=== PATIENT | male | born 1930 | race Caucasian/White ===

== ENCOUNTER 2021-02-09 10:03 | Outpatient (CLI) | payer MEDICARE | END 2021-02-09 10:04 | disposition home or self-care (01) | LOC: BURCT 10:03 | PROVIDERS: ATTEND Psychiatry & Neurology Neurology | DX: F07.81 Postconcussional syndrome (principal); I62.01 Nontraumatic acute subdural hemorrhage; I62.03 Nontraumatic chronic subdural hemorrhage | CPT/HCPCS: 70450 ==

== ENCOUNTER 2021-02-16 14:47 | Inpatient (IN) | payer MEDICARE ==
[2021-02-16 15:24] VITALS: BMI 23.7
[2021-02-16] MEDS: metFORMIN 500 MG TAB PO SCH (17:37)
[2021-02-16] MEDS: Lisinopril 5 MG TAB PO SCH (22:21)
[2021-02-16] MEDS: Latanoprost 0.005% Ophth Soln 2.5 ml Bottle EA EYE SCH (22:21)
[2021-02-16] MEDS: Atorvastatin Calcium 10 MG TAB PO SCH (22:21)
[2021-02-16] MEDS ORDERED: Ondansetron ODT 4 MG TAB PO SCH (23:00)
[2021-02-17] MEDS ORDERED: Aspirin 81 mg Enteric Coated Tablet PO SCH (09:00)
[2021-02-17] MEDS: metFORMIN 500 MG TAB PO SCH ×2 (09:55→17:25)
[2021-02-17] MEDS: Finasteride 5 MG TAB PO SCH (09:56)
[2021-02-17] MEDS: Amlodipine 5 MG TAB PO SCH (09:58)
[2021-02-17] MEDS ORDERED: Loperamide HCl 2 MG CAP PO PRN (16:22)
[2021-02-17] MEDS: Ondansetron ODT 4 MG TAB PO PRN (16:24)
[2021-02-17] MEDS: Atorvastatin Calcium 10 MG TAB PO SCH ×2 (21:38→22:33)
[2021-02-17] MEDS: Latanoprost 0.005% Ophth Soln 2.5 ml Bottle EA EYE SCH ×2 (21:39→22:33)
[2021-02-17] MEDS: Lisinopril 5 MG TAB PO SCH ×2 (21:39→22:33)
[2021-02-17 22:45] LABS: SARS-CoV-2 PCR by NAA Not Detected (NotDetected)
[2021-02-18] MEDS: metFORMIN 500 MG TAB PO SCH ×2 (09:17→17:08)
[2021-02-18] MEDS: Saccharomyces boulardii 250 MG CAP PO SCH (09:17)
[2021-02-18] MEDS: Finasteride 5 MG TAB PO SCH (09:18)
[2021-02-18] MEDS: Amlodipine 5 MG TAB PO SCH (09:19)
[2021-02-18] MEDS: Atorvastatin Calcium 10 MG TAB PO SCH (20:52)
[2021-02-18] MEDS: Lisinopril 5 MG TAB PO SCH (20:52)
[2021-02-18] MEDS: Latanoprost 0.005% Ophth Soln 2.5 ml Bottle EA EYE SCH (20:53)
[2021-02-19] MEDS: metFORMIN 500 MG TAB PO SCH ×2 (08:48→18:08)
[2021-02-19] MEDS: Saccharomyces boulardii 250 MG CAP PO SCH (08:48)
[2021-02-19] MEDS: Amlodipine 5 MG TAB PO SCH (08:48)
[2021-02-19] MEDS: Finasteride 5 MG TAB PO SCH (08:49)
[2021-02-19] MEDS: Atorvastatin Calcium 10 MG TAB PO SCH (21:26)
[2021-02-19] MEDS: Lisinopril 5 MG TAB PO SCH (21:26)
[2021-02-19] MEDS: Latanoprost 0.005% Ophth Soln 2.5 ml Bottle EA EYE SCH (21:26)
[2021-02-20] MEDS: metFORMIN 500 MG TAB PO SCH ×2 (09:01→20:04)
[2021-02-20] MEDS: Saccharomyces boulardii 250 MG CAP PO SCH (09:01)
[2021-02-20] MEDS: Finasteride 5 MG TAB PO SCH (09:02)
[2021-02-20] MEDS: Megestrol Acetate 40 MG TAB PO SCH ×2 (09:02→21:10)
[2021-02-20] MEDS: Amlodipine 5 MG TAB PO SCH (13:11)
[2021-02-20 20:30] LABS: Bilirubin Negative (Negative); Blood, Urine Negative (Negative); Clarity Clear (Clear); Glucose, Urine (Dipstick) Negative (Negative); Ketone, Urine Negative (Negative); Leukocyte Negative (Negative); Nitrite Negative (Negative); Protein, Urine (Dipstick) Trace mg/dL (Neg-Trace); Specific Gravity, Urine 1.015 (1.005-1.030)
[2021-02-20] MEDS: Atorvastatin Calcium 10 MG TAB PO SCH (21:10)
[2021-02-20] MEDS: Lisinopril 5 MG TAB PO SCH (21:10)
[2021-02-20] MEDS: Latanoprost 0.005% Ophth Soln 2.5 ml Bottle EA EYE SCH (21:13)
[2021-02-21] MEDS: Finasteride 5 MG TAB PO SCH (09:12)
[2021-02-21] MEDS: Megestrol Acetate 40 MG TAB PO SCH ×2 (09:12→20:57)
[2021-02-21] MEDS: Amlodipine 5 MG TAB PO SCH (09:12)
[2021-02-21] MEDS: Saccharomyces boulardii 250 MG CAP PO SCH (09:12)
[2021-02-21] MEDS: metFORMIN 500 MG TAB PO SCH ×2 (09:12→16:33)
[2021-02-21] MEDS: Lisinopril 5 MG TAB PO SCH (20:57)
[2021-02-21] MEDS: Atorvastatin Calcium 10 MG TAB PO SCH (20:57)
[2021-02-21] MEDS: Latanoprost 0.005% Ophth Soln 2.5 ml Bottle EA EYE SCH (20:58)
[2021-02-22] MEDS: metFORMIN 500 MG TAB PO SCH ×2 (09:44→16:16)
[2021-02-22] MEDS: Saccharomyces boulardii 250 MG CAP PO SCH (09:44)
[2021-02-22] MEDS: Finasteride 5 MG TAB PO SCH (09:44)
[2021-02-22] MEDS: Megestrol Acetate 40 MG TAB PO SCH ×2 (09:44→20:14)
[2021-02-22] MEDS: Amlodipine 5 MG TAB PO SCH (09:44)
[2021-02-22] MEDS: Atorvastatin Calcium 10 MG TAB PO SCH (20:13)
[2021-02-22] MEDS: Lisinopril 5 MG TAB PO SCH (20:13)
[2021-02-22] MEDS: Latanoprost 0.005% Ophth Soln 2.5 ml Bottle EA EYE SCH (20:14)
[2021-02-23] MEDS: metFORMIN 500 MG TAB PO SCH ×2 (09:21→18:13)
[2021-02-23] MEDS: Saccharomyces boulardii 250 MG CAP PO SCH (09:21)
[2021-02-23] MEDS: Finasteride 5 MG TAB PO SCH (09:22)
[2021-02-23] MEDS: Megestrol Acetate 40 MG TAB PO SCH ×2 (09:22→20:59)
[2021-02-23] MEDS: Amlodipine 5 MG TAB PO SCH (09:23)
[2021-02-23] MEDS: Latanoprost 0.005% Ophth Soln 2.5 ml Bottle EA EYE SCH (20:59)
[2021-02-23] MEDS: Atorvastatin Calcium 10 MG TAB PO SCH (20:59)
[2021-02-23] MEDS: Lisinopril 5 MG TAB PO SCH (21:00)
[2021-02-24] MEDS: Amlodipine 5 MG TAB PO SCH (08:32)
[2021-02-24] MEDS: Megestrol Acetate 40 MG TAB PO SCH ×2 (08:33→20:28)
[2021-02-24] MEDS: metFORMIN 500 MG TAB PO SCH ×2 (08:34→17:28)
[2021-02-24] MEDS: Saccharomyces boulardii 250 MG CAP PO SCH (08:34)
[2021-02-24] MEDS: Finasteride 5 MG TAB PO SCH (08:34)
[2021-02-24] MEDS: Atorvastatin Calcium 10 MG TAB PO SCH (20:28)
[2021-02-24] MEDS: Lisinopril 5 MG TAB PO SCH (20:28)
[2021-02-24] MEDS: Latanoprost 0.005% Ophth Soln 2.5 ml Bottle EA EYE SCH (20:28)
[2021-02-25] MEDS: Saccharomyces boulardii 250 MG CAP PO SCH (08:58)
[2021-02-25] MEDS: metFORMIN 500 MG TAB PO SCH ×2 (08:58→16:58)
[2021-02-25] MEDS: Amlodipine 5 MG TAB PO SCH (08:58)
[2021-02-25] MEDS: Finasteride 5 MG TAB PO SCH (08:58)
[2021-02-25] MEDS: Megestrol Acetate 40 MG TAB PO SCH ×2 (08:58→21:50)
[2021-02-25] MEDS: Lisinopril 5 MG TAB PO SCH (21:50)
[2021-02-25] MEDS: Atorvastatin Calcium 10 MG TAB PO SCH (21:50)
[2021-02-25] MEDS: Latanoprost 0.005% Ophth Soln 2.5 ml Bottle EA EYE SCH (21:50)
[2021-02-26] MEDS: metFORMIN 500 MG TAB PO SCH ×2 (08:04→16:44)
[2021-02-26] MEDS: Megestrol Acetate 40 MG TAB PO SCH ×2 (08:04→22:37)
[2021-02-26] MEDS: Finasteride 5 MG TAB PO SCH (08:05)
[2021-02-26] MEDS: Amlodipine 5 MG TAB PO SCH (08:05)
[2021-02-26] MEDS: Saccharomyces boulardii 250 MG CAP PO SCH (08:06)
[2021-02-26 18:36] LABS: SARS-CoV-2 PCR by NAA Not Detected (NotDetected)
[2021-02-26] MEDS: Ondansetron ODT 4 MG TAB PO PRN (21:32)
[2021-02-26] MEDS: Lisinopril 5 MG TAB PO SCH (22:37)
[2021-02-26] MEDS: Atorvastatin Calcium 10 MG TAB PO SCH (22:37)
[2021-02-26] MEDS: Latanoprost 0.005% Ophth Soln 2.5 ml Bottle EA EYE SCH (22:38)
[2021-02-27] MEDS: Amlodipine 5 MG TAB PO SCH (09:12)
[2021-02-27] MEDS: Megestrol Acetate 40 MG TAB PO SCH ×2 (09:14→20:20)
[2021-02-27] MEDS: Finasteride 5 MG TAB PO SCH (09:14)
[2021-02-27] MEDS: Saccharomyces boulardii 250 MG CAP PO SCH (09:14)
[2021-02-27] MEDS: metFORMIN 500 MG TAB PO SCH ×2 (09:14→17:15)
[2021-02-27] MEDS: Latanoprost 0.005% Ophth Soln 2.5 ml Bottle EA EYE SCH (20:20)
[2021-02-27] MEDS: Lisinopril 5 MG TAB PO SCH (20:20)
[2021-02-27] MEDS: Atorvastatin Calcium 10 MG TAB PO SCH (20:20)
[2021-02-27] MEDS: Ondansetron ODT 4 MG TAB PO PRN (20:30)
[2021-02-28] MEDS ORDERED: Calcium Carbonate 500 MG ChewTAB PO PRN (07:02)
[2021-02-28] MEDS: Finasteride 5 MG TAB PO SCH (09:09)
[2021-02-28] MEDS: Amlodipine 5 MG TAB PO SCH (09:09)
[2021-02-28] MEDS: Megestrol Acetate 40 MG TAB PO SCH ×2 (09:09→20:54)
[2021-02-28] MEDS: Saccharomyces boulardii 250 MG CAP PO SCH (09:09)
[2021-02-28] MEDS: metFORMIN 500 MG TAB PO SCH ×2 (09:10→17:30)
[2021-02-28] MEDS: Atorvastatin Calcium 10 MG TAB PO SCH (20:54)
[2021-02-28] MEDS: Latanoprost 0.005% Ophth Soln 2.5 ml Bottle EA EYE SCH (20:55)
[2021-02-28] MEDS: Lisinopril 5 MG TAB PO SCH (20:55)
[2021-03-01] MEDS: Saccharomyces boulardii 250 MG CAP PO SCH (09:48)
[2021-03-01] MEDS: Megestrol Acetate 40 MG TAB PO SCH ×2 (09:48→22:37)
[2021-03-01] MEDS: Amlodipine 5 MG TAB PO SCH (09:49)
[2021-03-01] MEDS: metFORMIN 500 MG TAB PO SCH ×2 (09:49→16:42)
[2021-03-01] MEDS: Finasteride 5 MG TAB PO SCH (10:04)
[2021-03-01] MEDS: Atorvastatin Calcium 10 MG TAB PO SCH (22:36)
[2021-03-01] MEDS: Lisinopril 5 MG TAB PO SCH (22:36)
[2021-03-01] MEDS: Latanoprost 0.005% Ophth Soln 2.5 ml Bottle EA EYE SCH (22:37)
[2021-03-02] MEDS: Amlodipine 5 MG TAB PO SCH (09:51)
[2021-03-02] MEDS: Megestrol Acetate 40 MG TAB PO SCH ×2 (09:51→21:33)
[2021-03-02] MEDS: metFORMIN 500 MG TAB PO SCH ×2 (09:53→17:23)
[2021-03-02] MEDS: Finasteride 5 MG TAB PO SCH (09:53)
[2021-03-02] MEDS: Saccharomyces boulardii 250 MG CAP PO SCH (09:54)
[2021-03-02] MEDS: Atorvastatin Calcium 10 MG TAB PO SCH (21:33)
[2021-03-02] MEDS: Lisinopril 5 MG TAB PO SCH (21:33)
[2021-03-02] MEDS: Latanoprost 0.005% Ophth Soln 2.5 ml Bottle EA EYE SCH (21:33)
[2021-03-03 05:58] VITALS: BP 117/73; TEMP 97.6
[2021-03-03] MEDS: Finasteride 5 MG TAB PO SCH (09:57)
[2021-03-03] MEDS: Saccharomyces boulardii 250 MG CAP PO SCH (09:57)
[2021-03-03] MEDS: Megestrol Acetate 40 MG TAB PO SCH (09:57)
[2021-03-03] MEDS: metFORMIN 500 MG TAB PO SCH (09:57)
[2021-03-03] MEDS: Amlodipine 5 MG TAB PO SCH (09:58)
== END 2021-03-03 11:40 | disposition home health service (06) | DRG 947 ==
LOC: BURMED 14:47
PROVIDERS: ADMIT Family Medicine; ATTEND Family Medicine
DX: R53.1 Weakness (principal); G93.41 Metabolic encephalopathy; Z20.822 Contact with and (suspected) exposure to COVID-19; R33.9 Retention of urine, unspecified; I10 Essential (primary) hypertension; F07.81 Postconcussional syndrome; R41.3 Other amnesia; E11.9 Type 2 diabetes mellitus without complications; E78.5 Hyperlipidemia, unspecified; R13.10 Dysphagia, unspecified; Z79.82 Long term (current) use of aspirin; Z79.899 Other long term (current) drug therapy; Z79.84 Long term (current) use of oral hypoglycemic drugs
CPT/HCPCS: 36416; 70450; 81003; Q0162; S0179; U0003; U0005

== ENCOUNTER 2021-07-19 10:56 | Outpatient (CLI) | payer MEDICARE | END 2021-07-19 10:57 | disposition home or self-care (01) | LOC: BURCT 10:56 | PROVIDERS: ATTEND Surgery | DX: I62.03 Nontraumatic chronic subdural hemorrhage (principal); G96.08 Other cranial cerebrospinal fluid leak | CPT/HCPCS: 70450 ==

== ENCOUNTER 2021-10-23 11:22 | Outpatient (CLI) | payer MEDICARE | END 2021-10-23 11:23 | disposition home or self-care (01) | LOC: BURRAD 11:22 | PROVIDERS: ATTEND Nurse Practitioner Family | DX: M25.562 Pain in left knee (principal) ==